=== PATIENT | male | born 1980 | race Caucasian/White ===

== ENCOUNTER 2016-08-31 16:26 | Emergency (ER) | payer OTHER, SELFPAY ==
[~2016-08-31] VITALS: Ht 175.3 cm; Wt 70.5 kg
[2016-08-31] MEDS ORDERED: SODIUM CHLORIDE 0.9% 1,000 ML IV ONE (16:33)
[2016-08-31] MEDS ORDERED: LEVE100020 PO (16:47)
[2016-08-31] MEDS ORDERED: PHEN50TA PO (16:47)
[2016-08-31 16:54] LABS: HEMOGLOBIN 15.4 g/dL (13.7-18.0)
[2016-08-31] MEDS ORDERED: SODIUM CHLORIDE FLUSH 10ML SYR IVF ONE (17:00)
[2016-08-31] MEDS ORDERED: KETOROLAC 30 MG/1 ML IVPush ONE (17:00)
[2016-08-31] MEDS ORDERED: SODIUM CHLORIDE 0.9% 1,000ML IVBOLUS ONE (17:00)
[2016-08-31] MEDS ORDERED: LORazepam 2 MG/ML, 1ML IVPush ONE (17:00)
[2016-08-31 17:06] LABS: ASPARTATE AMINO TRANSFERASE 23 U/L (15-37); BLOOD UREA NITROGEN 13 mg/dL (7-18)
[2016-08-31] MEDS ORDERED: KETOROLAC 30 MG/1 ML ONE ×2 (17:29→17:32)
[2016-08-31] MEDS ORDERED: LORazepam 2 MG/ML, 1ML ONE (17:30)
[2016-08-31 18:08] LABS: DAU SCREEN DISCLAIMER
[2016-08-31 19:38] VITALS: BP 119/81
[2016-09-01] MEDS ORDERED: PHEN100C PO (20:08)
== END 2016-08-31 19:40 | disposition home or self-care (01) ==
LOC: ED 19:37
DX: R07.89 Other chest pain (principal); F41.1 Generalized anxiety disorder; G40.909 Epilepsy, unspecified, not intractable, without status epilepticus; Z79.899 Other long term (current) drug therapy
CPT/HCPCS: 36415; 71010; 80053; 80185; 80307; 84484; 85025; 93005; 96361; 96374; 96375; 99285; J1885; J2060; J7030

== ENCOUNTER 2016-09-01 19:31 | Emergency (ER) | payer OTHER ==
[~2016-09-01] VITALS: Ht 177.8 cm; Wt 71.0 kg
[~2016-09-01 19:31] MED LIST: LEVE100020 PO; PHEN50TA PO
[2016-09-01] MEDS ORDERED: LORazepam 2 MG/ML, 1ML ONE (19:46)
[2016-09-01] MEDS ORDERED: PLEASE ENTER HEIGHT AND WEIGHT MC SCH (20:00)
[2016-09-01] MEDS ORDERED: SODIUM CHLORIDE FLUSH 10ML SYR IVF ONE (20:00)
[2016-09-01] MEDS ORDERED: LORazepam 2 MG/ML, 1ML IVPush ONE (20:00)
[2016-09-01] MEDS ORDERED: PLEASE ENTER ALLERGIES MC SCH ×2 (20:00)
[2016-09-01 20:07] LABS: HEMOGLOBIN 15.2 g/dL (13.7-18.0)
[2016-09-01] MEDS ORDERED: PHEN100C PO (20:08)
[2016-09-01 20:14] LABS: DAU SCREEN DISCLAIMER
[2016-09-01 20:17] LABS: BLOOD UREA NITROGEN 10 mg/dL (7-18)
[2016-09-01 21:04] VITALS: BP 115/66
== END 2016-09-01 22:01 | disposition home or self-care (01) ==
LOC: ED 21:51
DX: G40.909 Epilepsy, unspecified, not intractable, without status epilepticus (principal)
CPT/HCPCS: 36415; 80048; 80185; 80307; 81003; 82040; 83605; 85025; 93005; 96374; 99285; J2060

== ENCOUNTER 2017-07-08 04:05 | Emergency (ER) | payer OTHER ==
[~2017-07-08] VITALS: Ht 175.3 cm; Wt 70.0 kg
[~2017-07-08 04:05] MED LIST changes: +PHEN100C PO
[2017-07-08] MEDS ORDERED: KETOROLAC 30 MG/1 ML ONE (04:25)
[2017-07-08] MEDS ORDERED: LORazepam 2 MG/ML, 1ML ONE (04:25)
[2017-07-08] MEDS ORDERED: LORazepam 2 MG/ML, 1ML IM ONE (04:30)
[2017-07-08] MEDS ORDERED: KETOROLAC 30 MG/1 ML IM ONE (04:30)
[2017-07-08 05:07] LABS: BASOPHILS # (AUTO) 0.03 x10^3/uL (0-0.1); BASOPHILS % (AUTO) 0 % (0-1); EOSINOPHILS % (AUTO) 0 % (1-7); LYMPHOCYTES # (AUTO) 1.74 x10^3/uL (1-3.4); LYMPHOCYTES % (AUTO) 25 % (22-44); MD NO; MEAN CORPUSCULAR HEMOGLOBIN 32.6 pg (27.5-34.5); MEAN CORPUSCULAR HGB CONC 34.5 g/dL (33.2-36.2); MEAN CORPUSCULAR VOLUME 94.5 fL (81-97); MONOCYTES # (AUTO) 0.59 x10^3/uL (0.2-0.8); MONOCYTES % (AUTO) 9 % (2-9); NEUTROPHILS # (AUTO) 4.61 x10^3/uL (1.8-6.8); NEUTROPHILS % (AUTO) 66 % (42-75); PLATELET COUNT 293 x10^3/uL (130-400); RED BLOOD COUNT 4.87 x10^6/uL (4.38-5.82); RED CELL DISTRIBUTION WIDTH 13.3 % (9.4-14.8)
[2017-07-08 05:16] LABS: CHLORIDE 109 mmol/L (98-107)
[2017-07-08 05:26] LABS: ALANINE AMINOTRANSFERASE 69 U/L (12-78); ALBUMIN 3.8 g/dL (3.4-5.0); ALKALINE PHOSPHATASE 86 U/L (45-117); ANION GAP 11 mmol/L (5-15); BILIRUBIN,TOTAL 0.7 mg/dL (0.2-1.0); CALCIUM 8.7 mg/dL (8.5-10.1); CREATINE KINASE, TOTAL 194 U/L (39-308); CREATININE 0.79 mg/dL (0.7-1.3); TOTAL PROTEIN 7.3 g/dL (6.4-8.2)
[2017-07-08] MEDS ORDERED: DICYCLOMINE 10 MG/ML, 2ML ONE (07:55)
[2017-07-08] MEDS ORDERED: METHOCARBAMOL 750 MG TABLET ONE (07:55)
[2017-07-08 07:56] LABS: AMPHETAMINE SCREEN, URINE Negative (Negative); BARBITURATE SCREEN, URINE Negative (Negative); BENZODIAZEPINE SCREEN, URINE Negative (Negative); CANNABINOID SCREEN, URINE Positive (Negative); COCAINE SCREEN, URINE Negative (Negative); METHADONE SCREEN, URINE Negative (Negative); OPIATE SCREEN, URINE Negative (Negative)
[2017-07-08] MEDS ORDERED: METHOCARBAMOL 750 MG TABLET PO ONE (08:00)
[2017-07-08] MEDS ORDERED: DICYCLOMINE 10 MG/ML, 2ML IM ONE (08:00)
[2017-07-08 08:20] LABS: MICROSCOPIC INDICATED
[2017-07-08 08:32] LABS: CULTURE INDICATED? NO
[2017-07-08 09:03] VITALS: BP 118/83
== END 2017-07-08 09:06 | disposition home or self-care (01) ==
LOC: ED 06:42
DX: R10.10 Upper abdominal pain, unspecified (principal); R79.1 Abnormal coagulation profile; G40.909 Epilepsy, unspecified, not intractable, without status epilepticus; F41.9 Anxiety disorder, unspecified
CPT/HCPCS: 36415; 74022; 80053; 80185; 80307; 81001; 82550; 83690; 85025; 93005; 96372; 99285; J0500; J1885; J2060

== ENCOUNTER 2019-01-19 18:17 | Emergency (ER) | payer OTHER ==
[~2019-01-19] VITALS: Ht 175.3 cm; Wt 66.1 kg
[2019-01-19 18:21] VITALS: BP 142/96
== END 2019-01-19 20:42 | disposition left against medical advice (07) ==
LOC: ED 20:36
DX: R56.9 Unspecified convulsions (principal); Z53.21 Procedure and treatment not carried out due to patient leaving prior to being seen by health care provider
CPT/HCPCS: 93005

== ENCOUNTER 2019-05-21 22:50 | Emergency (ER) | payer OTHER ==
[~2019-05-21] VITALS: Ht 175.3 cm; Wt 72.7 kg
[2019-05-21 23:16] LABS: BASOPHILS # (AUTO) 0.03 x10^3/uL (0-0.1); BASOPHILS % (AUTO) 0 % (0-1); EOSINOPHILS # (AUTO) 0.05 x10^3/uL (0-0.4); EOSINOPHILS % (AUTO) 1 % (1-7); LYMPHOCYTES # (AUTO) 1.88 x10^3/uL (1-3.4); LYMPHOCYTES % (AUTO) 21 % (22-44); MD NO; MEAN CORPUSCULAR HEMOGLOBIN 32.3 pg (27.5-34.5); MEAN CORPUSCULAR HGB CONC 32.6 g/dL (33.2-36.2); MEAN CORPUSCULAR VOLUME 99.1 fL (81-97); MEAN PLATELET VOLUME 7.7 fL (7.4-10.4); MONOCYTES % (AUTO) 13 % (2-9); NEUTROPHILS # (AUTO) 6.03 x10^3/uL (1.8-6.8); NEUTROPHILS % (AUTO) 66 % (42-75); PLATELET COUNT 261 x10^3/uL (130-400); RED BLOOD COUNT 4.37 x10^6/uL (4.38-5.82); RED CELL DISTRIBUTION WIDTH 13.1 % (9.4-14.8)
--- NOTE | 2019-05-21 23:20 | NUR ---
PT BIB EMS WITH CRAMPING ON LEFT AND RIGHT SIDES ALTERNATING. REPORTS PT HAD A SEIZURE BEFORE CALLING EMS. PT HAS DX EPILEPSY. PT REPORTS NO OTHER C/O AT THIS TIME. PT PROVIDED WARM BLANKET, CONNECTED TO MONITORING, CALL LIGHT WITHIN REACH, ALL SAFETY MEASURES IN PLACE.
[2019-05-21 23:32] LABS: ALBUMIN 3.4 g/dL (3.4-5.0); ANION GAP 6 mmol/L (5-15); CALCIUM 8.4 mg/dL (8.5-10.1); CHLORIDE 110 mmol/L (98-107); CREATININE 0.94 mg/dL (0.7-1.3)
[2019-05-22 00:43] VITALS: BP 120/92
[2019-05-22] MEDS ORDERED: PHENYTOIN 100 MG CAPSULE PO ONE (01:00)
[2019-05-22] MEDS ORDERED: PHENYTOIN 100 MG CAPSULE ONE (01:07)
== END 2019-05-22 01:13 | disposition home or self-care (01) ==
LOC: ED 23:04
DX: G40.804 Other epilepsy, intractable, without status epilepticus (principal)
CPT/HCPCS: 36415; 80048; 80185; 82040; 85025; 93005; 99284

== ENCOUNTER 2019-09-13 18:24 | Emergency (ER) | payer OTHER ==
[~2019-09-13] VITALS: Ht 175.3 cm; Wt 70.0 kg
--- NOTE | 2019-09-13 18:50 | NUR ---
PT BIB [facility]. PT WAS [employer] SHOPPING AND HAD A SZ. WITNESSES SAID IT WAS ABOUT A MINUTE LONG. PT HAS HX OF SZ. NO HEAD TRAUMA. 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 PT SAYS HE IS COMPLIENT WITH SZ MEDICATION
[2019-09-13 19:03] LABS: BASOPHILS # (AUTO) 0.02 x10^3/uL (0-0.1); BASOPHILS % (AUTO) 0 % (0-1); EOSINOPHILS # (AUTO) 0.01 x10^3/uL (0-0.4); EOSINOPHILS % (AUTO) 0 % (1-7); LYMPHOCYTES # (AUTO) 0.88 x10^3/uL (1-3.4); LYMPHOCYTES % (AUTO) 10 % (22-44); MD NO; MEAN CORPUSCULAR HEMOGLOBIN 32.3 pg (27.5-34.5); MEAN CORPUSCULAR HGB CONC 33.4 g/dL (33.2-36.2); MEAN CORPUSCULAR VOLUME 96.8 fL (81-97); MEAN PLATELET VOLUME 8.3 fL (7.4-10.4); MONOCYTES # (AUTO) 0.64 x10^3/uL (0.2-0.8); MONOCYTES % (AUTO) 7 % (2-9); NEUTROPHILS # (AUTO) 7.44 x10^3/uL (1.8-6.8); NEUTROPHILS % (AUTO) 83 % (42-75); PLATELET COUNT 262 x10^3/uL (130-400); RED BLOOD COUNT 4.73 x10^6/uL (4.38-5.82); RED CELL DISTRIBUTION WIDTH 13.1 % (9.4-14.8)
[2019-09-13 19:13] LABS: ALBUMIN 3.8 g/dL (3.4-5.0); ANION GAP 8 mmol/L (5-15); CALCIUM 9.1 mg/dL (8.5-10.1); CHLORIDE 107 mmol/L (98-107); CREATININE 1.11 mg/dL (0.7-1.3)
[2019-09-13 20:07] VITALS: BP 118/73
== END 2019-09-13 20:10 | disposition home or self-care (01) ==
LOC: ED 18:32
DX: G40.409 Other generalized epilepsy and epileptic syndromes, not intractable, without status epilepticus (principal); R41.0 Disorientation, unspecified
CPT/HCPCS: 36415; 80048; 82040; 85025; 99283

== ENCOUNTER 2019-12-09 22:21 | Emergency (ER) | payer OTHER ==
[~2019-12-09] VITALS: Ht 175.3 cm; Wt 70.0 kg
[2019-12-09] MEDS ORDERED: DIPHENHYDRAMINE 25 MG CAPSULE PO ONE (23:00)
[2019-12-09] MEDS ORDERED: LORazepam 1MG TABLET PO ONE (23:00)
[2019-12-09 23:08] LABS: BASOPHILS # (AUTO) 0.03 x10^3/uL (0-0.1); BASOPHILS % (AUTO) 0 % (0-1); EOSINOPHILS # (AUTO) 0.08 x10^3/uL (0-0.4); EOSINOPHILS % (AUTO) 1 % (1-7); LYMPHOCYTES % (AUTO) 30 % (22-44); MD NO; MEAN CORPUSCULAR HEMOGLOBIN 33.2 pg (27.5-34.5); MEAN CORPUSCULAR HGB CONC 34.1 g/dL (33.2-36.2); MEAN CORPUSCULAR VOLUME 97.3 fL (81-97); MEAN PLATELET VOLUME 7.9 fL (7.4-10.4); MONOCYTES # (AUTO) 0.86 x10^3/uL (0.2-0.8); MONOCYTES % (AUTO) 11 % (2-9); NEUTROPHILS # (AUTO) 4.42 x10^3/uL (1.8-6.8); NEUTROPHILS % (AUTO) 58 % (42-75); PLATELET COUNT 269 x10^3/uL (130-400); RED BLOOD COUNT 4.63 x10^6/uL (4.38-5.82); RED CELL DISTRIBUTION WIDTH 13.5 % (9.4-14.8)
--- NOTE | 2019-12-09 23:08 | NUR ---
Pt [facility], pt reports he is having chest pain now. Pt reports that he does not feel well. Pts baseline is unknown so pt is speaking slurred but pt also does not deny etoh use. Pt reports he uses alot of cannibis for his epilepsy. Pt reports that the pain is only inttermitent and does not sustain. Pt resting in bed and fall precautions in place.
[2019-12-09 23:21] LABS: ALBUMIN 3.7 g/dL (3.4-5.0); ANION GAP 10 mmol/L (5-15); CALCIUM 8.5 mg/dL (8.5-10.1); CHLORIDE 110 mmol/L (98-107); CREATININE 0.85 mg/dL (0.7-1.3)
[2019-12-09 23:25] LABS: TROPONIN I 0.027 ng/mL (0.000-0.045)
[2019-12-09] MEDS ORDERED: POTASSIUM CHLORIDE 20 MEQ TAB.ER.PRT PO ONE (23:30)
[2019-12-09] MEDS ORDERED: LORazepam 1MG TABLET ONE (23:32)
[2019-12-09] MEDS ORDERED: DIPHENHYDRAMINE 25 MG CAPSULE ONE (23:32)
--- NOTE | 2019-12-09 23:35 | NUR ---
Pty medicated per emar.
--- NOTE | 2019-12-09 23:40 | NUR ---
REPORT RECEIVED AND CARE ASSUMED. PT NSR ON MONITOR. C/O "MUSCULAR ANGULATIONS" IN CHEST AND RIGHT SIDE. VSS. PT MOVING ALL EXTREMITIES. NO WEAKNESS NOTED. PT DENIES NEEDS. CALL LIGHT IN REACH.
[2019-12-09] MEDS ORDERED: POTASSIUM CHLORIDE 20 MEQ TAB.ER.PRT ONE (23:48)
--- NOTE | 2019-12-10 00:10 | NUR ---
PT D/C HOME. AMBUALTES WITH STEADY GAIT. ANSWERING ALL QUESTIONS APPROPRIATELY. DISCUSSED S/S TO RETURN TO ER. PT VERBALIZES UNDERSTANDING OF ALL. TAXI VOUCHER GIVEN.
[2019-12-10 00:12] VITALS: BP 111/61
== END 2019-12-10 00:15 | disposition home or self-care (01) ==
LOC: ED 23:54
DX: R07.89 Other chest pain (principal); E87.6 Hypokalemia; F10.120 Alcohol abuse with intoxication, uncomplicated; F17.210 Nicotine dependence, cigarettes, uncomplicated; Y90.9 Presence of alcohol in blood, level not specified
CPT/HCPCS: 36415; 71046; 80048; 80307; 82040; 84484; 85025; 93005; 99285; 99406; Q0163